=== PATIENT | female | born 1980 | race Caucasian/White ===

== ENCOUNTER 2018-02-03 17:35 | Emergency (ER) | payer OTHER ==
[2018-02-03 17:43] VITALS: PULSE 79; RESP 18; TEMP 97.8
[2018-02-03] MEDS ORDERED: Sodium Chloride 0.9% 1,000 ML IV STA (18:04)
--- NOTE | 2018-02-03 18:22 | ED PDOC ---
HPI: Abdomen Time Seen by Provider: 02/03/18 17:53 Chief Complaint (Nursing): Abdominal Pain Chief Complaint (Provider): Abdominal Pain History Per: Patient History/Exam Limitations: no limitations Onset/Duration Of Symptoms: Days (x1) Additional Complaint(s): 37 yy/o female with a pmhx of PE (due to coagulation disorder), who presents to the ED complaining of abdominal pain x1 day. Patient states abdominal pain began around 0900, and is in the RUQ and radiates to her back and RLQ. States pain is constant, has been worsening since onset, and is now severe in intensity. Also reports 10 episodes of non-bilious, non-bloody intractable vomiting since 1300. Denies fever, chills, urinary symptoms, diarrhea, or constipation. Reports normal BM today. Denies any recent travel, sick contacts, or new foods. Reports she is currently having a heavy flow period, but states this is normal since she began taking blood thinners for PE. PMD: Non-[facility] Provider Past Medical History Reviewed: Historical Data, Nursing Documentation, Vital Signs Vital Signs: Last Vital Signs Temp 97.8 F 02/04/18 00:10 Pulse 79 02/04/18 00:10 Resp 18 02/04/18 00:10 BP 117/77 02/04/18 00:10 Pulse Ox 100 02/04/18 00:10 - Medical History PMH: Pulmonary Embolism (coagulation disorder) - Surgical History Surgical History: (x2) - Family History Family History: States: No Known Family Hx - Social History Current smoker - smoking cessation education provided: No Alcohol: None - Home Medications Home Medications: Ambulatory Orders Medication Instructions Recorded Ciprofloxacin HCl [Cipro] 250 mg PO BID #10 tab 02/03/18 Ibuprofen [Motrin Tab] 600 mg PO Q8 PRN #30 tab 02/03/18 Ondansetron ODT [Zofran ODT] 1 odt PO Q6 PRN #20 odt 02/03/18 Tamsulosin [Flomax] 0.4 mg PO DAILY #14 cap 02/03/18 traMADol [Ultram] 50 mg PO TID PRN #15 tab 02/03/18 - Allergies Allergies/Adverse Reactions: Allergies Allergy/AdvReac Type Severity Reaction Status Date / Time No Known Allergies Allergy Verified 02/03/18 17:39 Review of Systems ROS Statement: Except As Marked, All Systems Reviewed And Found Negative Constitutional: Negative for: Fever, Chills Gastrointestinal: Positive for: Vomiting, Abdominal Pain. Negative for: Diarrhea, Constipation, Hematemesis Genitourinary Female: Negative for: Dysuria, Frequency, Incontinence, Hematuria Musculoskeletal: Positive for: Back Pain Physical Exam - Reviewed Nursing Documentation Reviewed: Yes Vital Signs Reviewed: Yes - Physical Exam Appears: Positive for: Uncomfortable, In Acute Distress (painful distress) Skin: Positive for: Warm, Dry, Pallor Eye Exam: Positive for: EOMI, PERRL ENT: Negative for: Pharyngeal Erythema, Tonsillar Exudate Neck: Positive for: Painless ROM. Negative for: Supple Cardiovascular/Chest: Positive for: Regular Rate, Rhythm. Negative for: Murmur Respiratory: Positive for: Normal Breath Sounds. Negative for: Wheezing Gastrointestinal/Abdominal: Positive for: Soft, Tenderness (to palpation of RUQ and RLQ). Negative for: Mass, Distended, Guarding, Rebound Back: Positive for: R CVA Tenderness. Negative for: Vertebral Tenderness Extremity: Positive for: Normal ROM. Negative for: Deformity Lymphatic: Negative for: Adenopathy Neurologic/Psych: Positive for: Alert. Negative for: Motor/Sensory Deficits - Laboratory Results Result Diagrams: 02/03/18 18:29 02/03/18 18:29 - ECG O2 Sat by Pulse Oximetry: 99 (RA) Pulse Ox Interpretation: Normal Medical Decision Making Medical Decision Making: Time: 18:02 Initial Impression: Right sided abdominal pain. Differential diagnoses include, but are not limited to gallbladder disease, pancreatitis, appendicitis, pyelonephritis, renal colic, hepatitis Plan: --Blood Type and Screen --CMP --Lactic Acid --LDH --Lipase --ED Urine dipstick --CBC --PTT/PT --Dextrose 1,000 ml, 100 mls/hr --Reevaluation EXAM: CT Abdomen and Pelvis With Intravenous Contrast CLINICAL HISTORY: 37 years old, female; Pain; Abdominal pain; Additional info: Right sided abdominal pain TECHNIQUE: Axial computed tomography images of the abdomen and pelvis with intravenous contrast. All CT scans at this facility use one or more dose reduction techniques, viz.: automated exposure control; ma/kV adjustment per patient size (including targeted exams where dose is matched to indication; i.e. head); or iterative reconstruction technique. Coronal and sagittal reformatted images were created and reviewed. CONTRAST: 96 mL of omnipaque administered intravenously. COMPARISON: US - ABDOMEN COMPLETE 2018-02-03 18:56 FINDINGS: Lung bases: Atelectasis. ABDOMEN: Liver: No acute abnormality as visualized. Gallbladder and bile ducts: No acute abnormality as visualized. Pancreas: No acute abnormality as visualized. Spleen: No splenomegaly. Adrenals: No acute abnormality as visualized. Kidneys and ureters: 3.5 mm calculus in the bladder near the right ureterovesicular junction. Mild right hydroureteronephrosis. Right ureteral wall demonstrates thickening and increased enhancement. Perinephric fluid/stranding noted. 2 cm left parapelvic cyst. Nonobstructing left intrarenal calculi. Stomach and bowel: Limited evaluation without contrast. No obstruction. No definitive focus of acute inflammation. Appendix: No findings to suggest acute appendicitis. PELVIS: Bladder: No acute abnormality as visualized. Reproductive: No acute abnormality as visualized. ABDOMEN and PELVIS: Intraperitoneal space: No free air. No significant fluid collection. Bones/joints: No acute abnormality as visualized. Soft tissues: No acute abnormality as visualized. Vasculature: No acute abnormality as visualized. No abdominal aortic aneurysm. Lymph nodes: No acute abnormality as visualized. IMPRESSION: 3.5 mm calculus in the bladder near the right ureterovesicular junction. Mild right hydroureteronephrosis. Right ureteral wall demonstrates thickening and increased enhancement. Perinephric fluid/stranding noted. Correlate clinically to exclude concomitant infection. 2 cm left parapelvic cyst. Nonobstructing left intrarenal calculi. Thank you for allowing us to participate in the care of your patient. Dictated and Authenticated by: Ananya White MD 02/03/2018 11:42 PM Eastern Time ([place] & [place]) 12a On reeval pt feels much better. DW pt findings and plan of care. Fluids, zofran, pain meds, prophylactic abx, f/u urology. Reasons to RTER reviewed. Questions/concerns answered/addressed. Stable for dc. Scribe Attestation: Documented by Javi Amaral, acting as a scribe for Callie Flores MD. Provider Scribe Attestation: All medical record entries made by the Scribe were at my direction and personally dictated by me. I have reviewed the chart and agree that the record accurately reflects my personal performance of the history, physical exam, medical decision making, and the department course for this patient. I have also personally directed, reviewed, and agree with the discharge instructions and disposition. Disposition - Clinical Impression Clinical Impression: Renal calculus Counseled Patient/Family Regarding: Studies Performed, Diagnosis, Need For Followup, Rx Given - Disposition Referrals: [facility] [Outside] [employer] Octavio Tamez [Outside] Vazquez Mayo MD [Staff Provider] - Disposition: Routine/Home Disposition Time: 00:00 Condition: IMPROVED Prescriptions: Ciprofloxacin HCl [Cipro] 250 mg PO BID #10 tab Ibuprofen [Motrin Tab] 600 mg PO Q8 PRN #30 tab PRN Reason: Pain, Moderate (4-7) Ondansetron ODT [Zofran ODT] 1 odt PO Q6 PRN #20 odt PRN Reason: Nausea/Vomiting Tamsulosin [Flomax] 0.4 mg PO DAILY #14 cap traMADol [Ultram] 50 mg PO TID PRN #15 tab PRN Reason: SEVERE PAIN ONLY Instructions: Kidney Stones in Adults Forms: [employer] (Citizen Of [place])
[2018-02-03 18:44] LABS: BASO % 0.4 % (0.0-2.0); EOS % 0.5 % (0.0-4.0); LYMPH # 0.4 K/uL (1.0-4.3); LYMPH % 6.7 % (20.0-40.0); MEAN CELL VOLUME 76.2 fl (81.0-99.0); MEAN CORPUSCULAR HEMOGLOBIN 24.5 pg (27.0-31.0); MEAN CORPUSCULAR HGB CONC 32.2 g/dL (33.0-37.0); MEAN PLATELET VOLUME 9.5 fl (7.2-11.7); MONO # 0.2 K/uL (0.0-0.8); MONO % 2.8 % (0.0-10.0); NEUT # 5.8 K/uL (1.8-7.0); NEUT % 89.6 % (50.0-75.0); PLATELET COUNT 257 K/uL (130-400); RBC 4.47 Mil/uL (3.80-5.20); RED CELL DISTRIBUTION WIDTH 16.8 % (11.5-14.5); WHITE BLOOD COUNT 6.5 K/uL (4.8-10.8)
[2018-02-03 18:52] LABS: INR 1.5 (0.9-1.2); PARTIAL THROMBOPLASTIN TIME 71.8 Seconds (25.6-37.1); PROTHROMBIN TIME 17.1 Seconds (9.8-13.1)
[2018-02-03 18:54] LABS: ALB/GLOB RATIO 1.1 (1.0-2.1); ALBUMIN 4.1 g/dL (3.5-5.0); ALT/SGPT 47 U/L (9-52); AST/SGOT 30 U/L (14-36); BLOOD UREA NITROGEN 11 mg/dl (7-17); CALCIUM 9.4 mg/dL (8.4-10.2); GFR AFRICAN-AMERICAN > 60; GFR NON-AFRICAN AMERICAN > 60; LIPASE 49 U/L (23-300)
[2018-02-03 20:10] LABS: ANISOCYTOSIS SLIGHT; BANDS 2 % (0-2); GIANT PLATELETS PRESENT; HYPOCHROMIC SLIGHT; LARGE PLATELETS PRESENT; LYMPHOCYTE 6 % (20-50); MONOCYTE 2 % (0-10); NEUTROPHIL 90 % (42-75); OVALOCYTES SLIGHT; PLATELET ESTIMATE NORMAL (NORMAL); TOTAL CELLS COUNTED 100
[2018-02-03] MEDS ORDERED: Iohexol 300 100 ML IJ ONE (22:20)
[2018-02-03] MEDS ORDERED: Sodium Chloride 0.9% 100 ML ONE (22:21)
--- NOTE | 2018-02-03 23:42 | CT ---
EXAM: CT Abdomen and Pelvis With Intravenous Contrast CLINICAL HISTORY: 37 years old, female; Pain; Abdominal pain; Additional info: Right sided abdominal pain TECHNIQUE: Axial computed tomography images of the abdomen and pelvis with intravenous contrast. All CT scans at this facility use one or more dose reduction techniques, viz.: automated exposure control; ma/kV adjustment per patient size (including targeted exams where dose is matched to indication; i.e. head); or iterative reconstruction technique. Coronal and sagittal reformatted images were created and reviewed. CONTRAST: 96 mL of omnipaque administered intravenously. COMPARISON: US - ABDOMEN COMPLETE 2018-02-03 18:56 FINDINGS: Lung bases: Atelectasis. ABDOMEN: Liver: No acute abnormality as visualized. Gallbladder and bile ducts: No acute abnormality as visualized. Pancreas: No acute abnormality as visualized. Spleen: No splenomegaly. Adrenals: No acute abnormality as visualized. Kidneys and ureters: 3.5 mm calculus in the bladder near the right ureterovesicular junction. Mild right hydroureteronephrosis. Right ureteral wall demonstrates thickening and increased enhancement. Perinephric fluid/stranding noted. 2 cm left parapelvic cyst. Nonobstructing left intrarenal calculi. Stomach and bowel: Limited evaluation without contrast. No obstruction. No definitive focus of acute inflammation. Appendix: No findings to suggest acute appendicitis. PELVIS: Bladder: No acute abnormality as visualized. Reproductive: No acute abnormality as visualized. ABDOMEN and PELVIS: Intraperitoneal space: No free air. No significant fluid collection. Bones/joints: No acute abnormality as visualized. Soft tissues: No acute abnormality as visualized. Vasculature: No acute abnormality as visualized. No abdominal aortic aneurysm. Lymph nodes: No acute abnormality as visualized. IMPRESSION: 3.5 mm calculus in the bladder near the right ureterovesicular junction. Mild right hydroureteronephrosis. Right ureteral wall demonstrates thickening and increased enhancement. Perinephric fluid/stranding noted. Correlate clinically to exclude concomitant infection. 2 cm left parapelvic cyst. Nonobstructing left intrarenal calculi.
[2018-02-04 00:19] VITALS: BP 117/77
--- NOTE | 2018-02-04 08:54 | US ---
HISTORY: ABD PAIN COMPARISON: None. TECHNIQUE: Sonographic evaluation of the abdomen. FINDINGS: LIVER: Enlarged, measuring 18.5 cm. Normal echogenicity of the liver parenchyma. No mass. No intrahepatic bile duct dilatation. GALLBLADDER: Small echogenic non shadowing focus measuring 3 mm without Doppler flow. No wall thickening or pericholecystic fluid. Sonographic Ward's sign was not elicited. COMMON BILE DUCT: Measures 3 mm. No stones. No dilatation. PANCREAS: Not well-visualized. RIGHT KIDNEY: Measures 9.7 x 4.2 x 4.3cm. Normal echogenicity. No calculus, mass, or hydronephrosis. LEFT KIDNEY: Measures 9.9 x 4.2 x 4.2cm. Interpolar cyst measuring 1.3 x 1.6 x 1.8 cm. Normal echogenicity. No calculus, mass, or hydronephrosis. SPLEEN: Normal in size and contour. No mass. AORTA: No aneurysmal dilatation. IVC: Unremarkable. OTHER FINDINGS: None. IMPRESSION: Hepatomegaly. Small 3 mm focus within the gallbladder that may represent a small polyp, tumefactive sludge or small non shadowing stone. Left renal cyst.
[2018-02-04 17:13] VITALS: O2SAT 99
== END 2018-02-04 00:14 | disposition home or self-care (01) ==
LOC: H.ER 17:35
DX: N20.0 Calculus of kidney (principal); N21.0 Calculus in bladder; N28.1 Cyst of kidney, acquired; Z86.711 Personal history of pulmonary embolism
CPT/HCPCS: 74177; 76700; 80053; 81025; 83605; 83615; 83690; 85025; 85610; 85730; 86850; 86900; 87040; 96361; 96374; 96375; 96376; 99285; J2270; J2405; J7040; J7042; Q9967